=== PATIENT | male | born 2000 | race Hispanic/Latino ===

== ENCOUNTER 2018-03-16 18:14 | Emergency (ER) | payer BC ==
[2018-03-16] MEDS ORDERED: Sodium Chloride 0.9% 1,000 ML IV STA (19:17)
--- NOTE | 2018-03-16 19:32 | ED PDOC ---
HPI: Abdomen Time Seen by Provider: 03/16/18 18:36 Chief Complaint (Nursing): Abdominal Pain Chief Complaint (Provider): Abdominal Pain History Per: Patient History/Exam Limitations: no limitations Onset/Duration Of Symptoms: Days Current Symptoms Are (Timing): Still Present Location Of Pain/Discomfort: Epigastric Associated Symptoms: Nausea, Vomiting. denies: Diarrhea, Constipation Additional Complaint(s): Abebe Hanson is a 17 year old male with no past medical history who is presenting to the ED with complaints of abdominal pain associated with nausea and 2 episodes of bloody vomit, onset this morning. Patient states that his first episode of vomiting was this morning which was a dark red color without coffee ground like texture. His second episode of vomiting was in the ED which was a bright red color with a few coffee ground pieces. Patient also reports that he has had epigastric burning pain that radiates to his chest every morning for 1-2 months and it is not related to his eating. He denies any diarrhea, chest pain currently, SOB, back pain, urinary symptoms, abdominal surgeries, NSAID/ASA use, etoh use, melena, or hematochezia. PMD: none provided Past Medical History Reviewed: Historical Data, Nursing Documentation, Vital Signs Vital Signs: Last Vital Signs Temp 98 F 03/16/18 18:22 Pulse 80 03/16/18 18:22 Resp 18 03/16/18 18:22 BP 113/70 03/16/18 18:22 Pulse Ox 98 03/16/18 19:36 - Medical History PMH: No Chronic Diseases - Surgical History Surgical History: No Surg Hx - Family History Family History: States: No Known Family Hx - Social History Current smoker - smoking cessation education provided: No Alcohol: None Drugs: Denies - Allergies Allergies/Adverse Reactions: Allergies Allergy/AdvReac Type Severity Reaction Status Date / Time No Known Allergies Allergy Verified 03/16/18 18:26 Review of Systems ROS Statement: Except As Marked, All Systems Reviewed And Found Negative Constitutional: Negative for: Fever Gastrointestinal: Positive for: Nausea, Vomiting, Abdominal Pain. Negative for : Diarrhea, Constipation, Melena, Hematochezia Physical Exam - Reviewed Nursing Documentation Reviewed: Yes Vital Signs Reviewed: Yes - Physical Exam Comments: GENERAL APPEARANCE: Patient is awake, alert, oriented x 3, in mild painful distress. SKIN: Warm, dry; (-) cyanosis, (+) pale in appearance. EYES: (+) mild conjunctival pallor, (-) scleral icterus. ENMT: Mucous membranes (-) moist. NECK: (-) tenderness, (-) stiffness, (-) lymphadenopathy. CHEST AND RESPIRATORY: (-) rales, (-) rhonchi, (-) wheezes; breath sounds equal bilaterally. HEART AND CARDIOVASCULAR: (-) irregularity; (-) murmur, (-) gallop. ABDOMEN AND GI: (-) distention. Bowel sounds active; (+) mild mid-abdomen tenderness. (-) guarding, (-) rebound, (-) palpable masses, (-) CVA tenderness. EXTREMITIES: (-) deformity, (-) edema, (+) distal pulses. NEURO AND PSYCH: Mental status as above; (-) focal findings. - Laboratory Results Result Diagrams: 03/16/18 19:40 - ECG O2 Sat by Pulse Oximetry: 98 (RA) Pulse Ox Interpretation: Normal Medical Decision Making Medical Decision Making: Time: 19:15 Plan: --Blood Type and Screen --CMP --Lipase --CBC --COAG --CXR --IV Fluids --Protonix Inj 40 mg IVP --Zofran 4 mg IVP --Urinalysis 20:00 Case d/w ER , Dr. Glover, agrees with current management. Patient will be signed out to Princess Torres PA-C pending labs, reevaluation, and disposition. Scribe Attestation: Documented by Krystina Mireles, acting as a scribe for Samira Stock PA-C. Provider Scribe Attestation: All medical record entries made by the Scribe were at my direction and personally dictated by me. I have reviewed the chart and agree that the record accurately reflects my personal performance of the history, physical exam, medical decision making, and the department course for this patient. I have also personally directed, reviewed, and agree with the discharge instructions and disposition. Disposition - Clinical Impression Clinical Impression: Abdominal pain, Vomiting blood - Patient ED Disposition Is Patient to be Admitted: Transfer of Care (Signed out to Princess Winkler pending labs, reevaluation, and disposition.) - Disposition Disposition Time: 20:00 Condition: STABLE Forms: [facility] (Bangladeshi)
[2018-03-16 20:13] LABS: BASO % 0.3 % (0.0-2.0); EOS % 0.4 % (0.0-4.0); HEMOGLOBIN 14.9 g/dL (12.0-18.0); LYMPH # 0.8 K/uL (1.0-4.3); LYMPH % 6.9 % (20.0-40.0); MEAN CELL VOLUME 88.3 fl (80.0-94.0); MEAN CORPUSCULAR HEMOGLOBIN 30.2 pg (27.0-31.0); MEAN CORPUSCULAR HGB CONC 34.2 g/dL (33.0-37.0); MEAN PLATELET VOLUME 8.8 fl (7.2-11.7); MONO # 0.5 K/uL (0.0-0.8); MONO % 4.6 % (0.0-10.0); NEUT # 9.6 K/uL (1.8-7.0); NEUT % 87.8 % (50.0-75.0); PLATELET COUNT 192 K/uL (130-400); RBC 4.92 Mil/uL (4.40-5.90); RED CELL DISTRIBUTION WIDTH 13.3 % (11.5-14.5)
[2018-03-16 20:25] LABS: ALB/GLOB RATIO 1.5 (1.0-2.1); ALBUMIN 4.4 g/dL (3.5-5.0); ALT/SGPT 43 U/L (21-72); AST/SGOT 27 U/L (17-59); BLOOD UREA NITROGEN 12 mg/dl (9-20); CALCIUM 9.3 mg/dL (8.4-10.2); GFR AFRICAN-AMERICAN > 60; GFR NON-AFRICAN AMERICAN > 60; INR 1.1 (0.9-1.2); LIPASE 120 U/L (23-300); PARTIAL THROMBOPLASTIN TIME 24.3 Seconds (25.6-37.1); PROTHROMBIN TIME 12.6 Seconds (9.8-13.1)
--- NOTE | 2018-03-16 20:34 | ED PDOC ---
- Laboratory Results Result Diagrams: 03/16/18 19:40 03/16/18 19:40 - ECG O2 Sat by Pulse Oximetry: 98 (RA) Pulse Ox Interpretation: Normal Medical Decision Making Medical Decision Making: Case endorsed to lyric writer, Jhonathan Torres PA-C, at 1999 due to shift change. Pertinent details reviewed. Patient pending labs, reevaluation, and disposition. WBC: 11. Hemodynamically stable. 2109 CXR reviewed, no acute disease as read by Biran BENNETT Patient notified a Radiologist will review the ED reading if any change in treatment is needed we will contact him. 2154 Patient tolerating PO intake on re-evaluation with improvement of presenting symptoms. Patient reports resolution of nausea and no further vomiting or abdominal pain. On exam, patient remains AAOx3, in no acute distress. Lungs clear to auscultation, cardiac RRR, abdomen soft, non-tender, repeat neuro exam shows no focal findings. Repeat Temp: 99.7 Repeat HR: 76 Repeat BP: 123/66 Vital signs stable. Lab/Diagnostic results d/w the patient in great detail. Diagnosis of abdominal pain, possible hematemesis d/w the patient. [place]/GERD diet recommended. Based on history, exam and diagnostic results, plan will be for outpatient follow up. Patient instructed to follow-up with pmd / referral provided / the clinic in 1- 2 days without fail. Advised to take medication as prescribed. Return to the emergency room at any time for any new or worsening symptoms. Patient states he fully agrees with and understands discharge instructions. States that he agrees with the plan and disposition. Verbalized and repeated discharge instructions and plan. I have given the patient opportunity to ask any additional questions. Disposition Counseled Patient/Family Regarding: Studies Performed, Diagnosis, Need For Followup, Rx Given - Clinical Impression Clinical Impression: Abdominal pain, Vomiting blood, Nausea - POA Present On Arrival: None - Disposition Referrals: Miguel Angel Chery MD, PhD [Staff Provider] - Disposition: Routine/Home Disposition Time: 22:00 Condition: STABLE Additional Instructions: FOLLOW UP WITH GI DIRECTED. REFERRAL PROVIDED. RETURN TO ED WITH ANY NEW OR WORSENING SYMPTOMS, INCLUDING BUT NOT LIMITED TO, WORSENING ABDOMINAL PAIN, INCREASED VOMITING, INCREASED BLOOD IN VOMIT, FEVER. Prescriptions: Famotidine [Pepcid] 40 mg PO DAILY #10 tablet Ondansetron ODT [Zofran ODT] 4 mg PO Q6 PRN #12 odt PRN Reason: NAUSEA,VOMITING Instructions: [place] Diet, Acute Abdomen (Belly Pain), Gastrointestinal Bleeding (DC), Nausea and Vomiting, Adult Forms: [facility] (Nigerien) Results - Lab Results Lab Results: 03/16/18 03/16/18 03/16/18 19:40 19:40 19:40 WBC RBC Hgb Hct MCV MCH MCHC RDW Plt Count MPV Neut % (Auto) Lymph % (Auto) [place] % (Auto) Eos % (Auto) Baso % (Auto) Neut # (Auto) Lymph # (Auto) [place] # (Auto) Eos # (Auto) Baso # (Auto) Neutrophils % (Manual) Band Neutrophils % Lymphocytes % (Manual) Reactive Lymphs % Monocytes % (Manual) Platelet Estimate RBC Morphology PT 12.6 INR 1.1 APTT 24.3 L Sodium 141 Potassium 3.4 L Chloride 101 Carbon Dioxide 23 Anion Gap 20 BUN 12 Creatinine 0.8 Est GFR ( Amer) > 60 Est GFR (Non-Af Amer) > 60 Random Glucose 96 Calcium 9.3 Total Bilirubin 1.1 AST 27 ALT 43 Alkaline Phosphatase 75 Total Protein 7.4 Albumin 4.4 Globulin 3.0 Albumin/Globulin Ratio 1.5 Lipase 120 Alcohol, Quantitative < 10 Blood Type O NEGATIVE Antibody Screen Negative BBK History Checked No verified bt 03/16/18 19:40 WBC 11.0 H RBC 4.92 Hgb 14.9 Hct 43.5 MCV 88.3 MCH 30.2 MCHC 34.2 RDW 13.3 Plt Count 192 MPV 8.8 Neut % (Auto) 87.8 H Lymph % (Auto) 6.9 L [place] % (Auto) 4.6 Eos % (Auto) 0.4 Baso % (Auto) 0.3 Neut # (Auto) 9.6 H Lymph # (Auto) 0.8 L [place] # (Auto) 0.5 Eos # (Auto) 0.0 Baso # (Auto) 0.0 Neutrophils % (Manual) 85 H Band Neutrophils % 1 Lymphocytes % (Manual) 3 L Reactive Lymphs % 9 H Monocytes % (Manual) 2 Platelet Estimate Normal RBC Morphology Normal PT INR APTT Sodium Potassium Chloride Carbon Dioxide Anion Gap BUN Creatinine Est GFR ( Amer) Est GFR (Non-Af Amer) Random Glucose Calcium Total Bilirubin AST ALT Alkaline Phosphatase Total Protein Albumin Globulin Albumin/Globulin Ratio Lipase Alcohol, Quantitative Blood Type Antibody Screen BBK History Checked
[2018-03-16 21:02] LABS: BANDS 1 % (0-2); LYMPHOCYTE 3 % (20-50); MONOCYTE 2 % (0-10); NEUTROPHIL 85 % (42-75); REACTIVE LYMPHOCYTES 9 % (0-0); TOTAL CELLS COUNTED 100
[2018-03-16 21:03] LABS: PLATELET ESTIMATE NORMAL (NORMAL)
[2018-03-16 22:16] VITALS: BP 123/66; PULSE 76; RESP 17; TEMP 99.7
--- NOTE | 2018-03-17 07:55 | RAD ---
HISTORY: abdominal pain COMPARISON: No prior. TECHNIQUE: Chest PA and lateral FINDINGS: LUNGS: No active pulmonary disease. PLEURA: No significant pleural effusion identified. No pneumothorax apparent. CARDIOVASCULAR: Normal. OSSEOUS STRUCTURES: No significant abnormalities. VISUALIZED UPPER ABDOMEN: Normal. OTHER FINDINGS: None. IMPRESSION: No acute cardiopulmonary disease appreciated. Yes
[2018-03-19 13:40] VITALS: O2SAT 98
== END 2018-03-16 22:25 | disposition home or self-care (01) ==
LOC: EDSEX 18:14 → H.ER 18:14
DX: R10.13 Epigastric pain (principal); K92.0 Hematemesis; R11.0 Nausea
CPT/HCPCS: 71046; 80053; 83690; 85025; 85610; 85730; 86850; 86900; 96361; 96374; 96375; 99283; C9113; G0480; J2405; J7040